=== PATIENT | female | born 1960 | race Caucasian/White ===

== ENCOUNTER 2016-06-10 14:02 | Emergency (ER) | payer BC, OTHER ==
--- NOTE | 2016-06-10 14:20 | ED NURSING NOTES ---
Clinical Report - Nurses [facility] [address] [place] [address] 06/10/2016 14:03 Patient: JUVENAL RECINOS TRIAGE Triage time 14:09 Jun 10 2016. Acuity: LEVEL 3. Chief Complaint: FACIAL DROOP. 14:17 06/10/16. Alert. No acute distress. SEPSIS SCREEN: Sepsis Screen. Negative (no infection suspected/documented). FABIANA COMA SCORE: [place] Coma Scale: 15- eyes open spontaneously (4); best verbal response- oriented x 4 (5); best motor response- obeys commands (6). --14:17 Flory Martin 14:17 06/10/16. BP: 105/85. HR: 84. RR: 16. O2 saturation: 98%. Temp: 97.7 F. Pain level now 0/10. --14:17 Flory Martin. Weight: 94.8 kg stated. Height/Length: 67 inches Per Patient. BMI: 32.8. --14:15 Flory Martin. Medications Levothyroxine Sodium Oral. --14:11 Flory Martin Tamoxifen Citrate Oral. --14:11 Flory Martin Cholesterol, unsure of name. --14:11 Flory Martin Coenzyme Q-10 Oral 10 mg. --14:12 Flory Martin Multivitamin Oral. --14:12 Flory Martin Probiotic Oral. --14:13 Flory Martin Benzonatate Oral. --14:13 Flory Martin. Medication/allergy information source: the patient. --14:17 Flory Martin. Allergies None. --14:13 Flory Martin. History Arrived by private vehicle. Historian: patient. Accompanied by spouse. Primary physician (Sarath). This started yesterday. ( Pt reports facial droop on the left side of her face that started last night and got a little worse this AM. Pt reports vertigo about a week ago, but no sickness since then.). She has had a recent fall (landed on her side). She has had new onset of numbness of the left face. No alteration in mental status, impaired speech, trouble walking or swallowing or dizziness. No weakness. 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 PAST MEDICAL HX: No history of stroke, diabetes mellitus or hypertension. No history of seizures. Immunizations: up-to-date and seasonal influenza. SOCIAL HX: Never smoker. No alcohol use or drug use. FALL RISK ASSESSMENT: Fall risk assessment completed. No fall risk identified. NUTRITIONAL RISK ASSESSMENT: The nutritional risk assessment revealed no deficiencies. FUNCTIONAL ASSESSMENT: Functional assessment: no impairments noted. LEARNING NEEDS ASSESSMENT: The learning needs assessment revealed no barriers. SKIN INTEGRITY ASSESSMENT: Skin integrity risk assessment completed. No skin integrity risk identified. --14:17 Flory Martin. PROBLEMS: Hypercholesterolemia. Thyroid Disease. --14:14 Flory Martin. Assessment The patient states feels the same. --14:17 Flory Martin. Interventions ID band on patient. --14:17 Flory Martin. PHYSICAL ASSESSMENT 14:18 06/10/16. Ambulatory to room. Baseline functional status: usually alert, oriented x4 and cooperative. Verbal response: usually clear and appropriate. Motor response: usually steady gait and moves all extremities equally GENERAL / NEURO / PSYCH: Awake. Oriented X 4. Alert. Appears in no acute distress. Speech normal. Mood/affect normal. Moves all extremities equally. No sensory deficit. HEENT: Left-sided facial weakness. Pupils equal, round and reactive to light. Pharynx within normal limits. RESPIRATORY: Respirations not labored. CVS: Capillary refill less than 2 seconds. SKIN: Skin is intact, warm and dry. --14:18 Flory Martin. NURSING PROGRESS NOTES 14:18 06/10/16. The plan of care for this patient has been created. Head of bed elevated. Reassurance given. Two patient identifiers checked. Call light placed in reach. Side rails up x 1. Bed placed in lowest position. Brakes of bed on. Patient ready for evaluation- chart flagged and ED physician and WORK DISTRIBUTOR notified. --14:18 Flory Martin. DISPOSITION / DISCHARGE 14:30 06/10/16. The goals identified in the patient's plan of care were met. --14:30 Flory Martin 14:28 06/10/16. BP: deferred. HR: deferred. RR: deferred. O2 saturation: deferred. Temp: deferred. Pain level now deferred. --14:30 Flory Martin Departure time: 14:30 Jun 10 2016. Condition at departure: unchanged. No learning barriers present. Discharge instructions provided and reviewed with the patient and spouse. Reviewed warnings (Patient verbalized awareness of warning s/sx listed in dc paperwork. Pt given form with stroke s/sx per request.). Reviewed medication(s) side effects, precautions, dosing and course information. Prescription(s) given to the patient (Prednisone.). Treatments reviewed. Reviewed referral to a primary care physician for followup. Patient verbalized understanding. Written instructions provided in Uzbek. The patient was discharged by the nurse practitioner. She was discharged home and accompanied by spouse. She left the Emergency Department ambulatory and via private vehicle. Spouse driving. --14:45 Flory Martin. Locked/Released at 06/10/2016 14:46 by Flory Martin,
--- NOTE | 2016-06-10 14:20 | ED NURSING NOTES ---
Clinical Report - Nurses [facility] [address] [place] [address] 06/10/2016 14:03 Patient: JUVENAL RECINOS TRIAGE Triage time 14:09 Jun 10 2016. Acuity: LEVEL 3. Chief Complaint: FACIAL DROOP. 14:17 06/10/16. Alert. No acute distress. SEPSIS SCREEN: Sepsis Screen. Negative (no infection suspected/documented). FABIANA COMA SCORE: [place] Coma Scale: 15- eyes open spontaneously (4); best verbal response- oriented x 4 (5); best motor response- obeys commands (6). --14:17 Flory Martin 14:17 06/10/16. BP: 105/85. HR: 84. RR: 16. O2 saturation: 98%. Temp: 97.7 F. Pain level now 0/10. --14:17 Flory Martin. Weight: 94.8 kg stated. Height/Length: 67 inches Per Patient. BMI: 32.8. --14:15 Flory Martin. Medications Levothyroxine Sodium Oral. --14:11 Flory Martin Tamoxifen Citrate Oral. --14:11 Flory Martin Cholesterol, unsure of name. --14:11 Flory Martin Coenzyme Q-10 Oral 10 mg. --14:12 Flory Martin Multivitamin Oral. --14:12 Flory Martin Probiotic Oral. --14:13 Flory Martin Benzonatate Oral. --14:13 Flory Martin. Medication/allergy information source: the patient. --14:17 Flory Martin. Allergies None. --14:13 Flory Martin. History Arrived by private vehicle. Historian: patient. Accompanied by spouse. Primary physician (Sarath). This started yesterday. ( Pt reports facial droop on the left side of her face that started last night and got a little worse this AM. Pt reports vertigo about a week ago, but no sickness since then.). She has had a recent fall (landed on her side). She has had new onset of numbness of the left face. No alteration in mental status, impaired speech, trouble walking or swallowing or dizziness. No weakness. 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 PAST MEDICAL HX: No history of stroke, diabetes mellitus or hypertension. No history of seizures. Immunizations: up-to-date and seasonal influenza. SOCIAL HX: Never smoker. No alcohol use or drug use. FALL RISK ASSESSMENT: Fall risk assessment completed. No fall risk identified. NUTRITIONAL RISK ASSESSMENT: The nutritional risk assessment revealed no deficiencies. FUNCTIONAL ASSESSMENT: Functional assessment: no impairments noted. LEARNING NEEDS ASSESSMENT: The learning needs assessment revealed no barriers. SKIN INTEGRITY ASSESSMENT: Skin integrity risk assessment completed. No skin integrity risk identified. --14:17 Flory Martin. PROBLEMS: Hypercholesterolemia. Thyroid Disease. --14:14 Flory Martin. Assessment The patient states feels the same. --14:17 Flory Martin. Interventions ID band on patient. --14:17 Flory Martin. PHYSICAL ASSESSMENT 14:18 06/10/16. Ambulatory to room. Baseline functional status: usually alert, oriented x4 and cooperative. Verbal response: usually clear and appropriate. Motor response: usually steady gait and moves all extremities equally GENERAL / NEURO / PSYCH: Awake. Oriented X 4. Alert. Appears in no acute distress. Speech normal. Mood/affect normal. Moves all extremities equally. No sensory deficit. HEENT: Left-sided facial weakness. Pupils equal, round and reactive to light. Pharynx within normal limits. RESPIRATORY: Respirations not labored. CVS: Capillary refill less than 2 seconds. SKIN: Skin is intact, warm and dry. --14:18 Flory Martin. NURSING PROGRESS NOTES 14:18 06/10/16. The plan of care for this patient has been created. Head of bed elevated. Reassurance given. Two patient identifiers checked. Call light placed in reach. Side rails up x 1. Bed placed in lowest position. Brakes of bed on. Patient ready for evaluation- chart flagged and ED physician and RAG COLLECTOR notified. --14:18 Flory Martin. DISPOSITION / DISCHARGE 14:30 06/10/16. The goals identified in the patient's plan of care were met. --14:30 Flory Martin 14:28 06/10/16. BP: deferred. HR: deferred. RR: deferred. O2 saturation: deferred. Temp: deferred. Pain level now deferred. --14:30 Flory Martin Departure time: 14:30 Jun 10 2016. Condition at departure: unchanged. No learning barriers present. Discharge instructions provided and reviewed with the patient and spouse. Reviewed warnings (Patient verbalized awareness of warning s/sx listed in dc paperwork. Pt given form with stroke s/sx per request.). Reviewed medication(s) side effects, precautions, dosing and course information. Prescription(s) given to the patient (Prednisone.). Treatments reviewed. Reviewed referral to a primary care physician for followup. Patient verbalized understanding. Written instructions provided in Irish. The patient was discharged by the nurse practitioner. She was discharged home and accompanied by spouse. She left the Emergency Department ambulatory and via private vehicle. Spouse driving. --14:45 Flory Martin. Locked/Released at 06/10/2016 14:46 by Flory Martin,
--- NOTE | 2016-06-10 14:20 | ED CLINICAL REPORT ---
Clinical Report - Physicians/Mid Levels [facility] [address] [place] [address] 06/10/2016 14:03 Patient: JUVENAL RECINOS Time Seen: 14:10; upon arrival, initial patient contact, initial documentation, patient care assumed. Arrived- By private vehicle. Historian- patient. HISTORY OF PRESENT ILLNESS Chief Complaint: PARESTHESIA. The patient has had numbness, and tingling. No weakness, impaired speech or swallowing, visual disturbance or recent fall. No difficulty walking. This started last night and is still present. At its maximum deficit described as mild. When seen in the E.D., deficit described as mild. No dizziness, altered mental status, seizure or blackouts. Usually is alert and oriented X3 and has normal mobility. (L side of face feels numb). Similar symptoms previously: None. Recent medical care: Not recently seen/assessed. REVIEW OF SYSTEMS No fever, headache, head injury, chest pain or difficulty breathing. All systems otherwise negative, except as recorded above. PAST HISTORY See nurses notes. ( PROBLEMS: Hypercholesterolemia. Thyroid Disease. --14:14 Flory Martin.). SOCIAL HISTORY Never smoker. No alcohol use or drug use. No recent travel. Is a local resident. FAMILY HISTORY Negative. ADDITIONAL NOTES The nursing notes have been reviewed with agreement regarding the chief complaint, HPI, ROS, PMH and patient medications and allergies. PHYSICAL EXAM Vital Signs: 06/10/2016 14:17 BP: 105/85. HR: 84. RR: 16. O2 saturation: 98%. Temp: 97.7 F. Have been reviewed as normal and appear to be correct. Appearance: Alert. No acute distress. Head: Head atraumatic. Eyes: Pupils equal, round and reactive to light. ENT: Normal ENT inspection. Airway intact. Pharynx normal. Neck: Normal inspection. Neck supple. CVS: Normal heart rate and rhythm. Heart sounds normal. Pulses normal. Respiratory: No respiratory distress. Breath sounds normal. Back: Normal inspection. Skin: Skin warm and dry. Normal skin color. No rash. Normal skin turgor. Extremities: Extremities exhibit normal ROM. No lower extremity edema. Neuro: Alert. Oriented X 3. Mood/affect normal. Speech normal. Cranial nerves abnormal. Mild left-sided facial weakness with sparing of forehead. No cerebellar findings. No motor deficit. No sensory deficit. PROGRESS AND PROCEDURES Patient counseled in person regarding the patient's stable condition and diagnosis. 14:19. Differential Diagnosis: Other possible considerations: bells palsy, tia, cva, trigeminal neuralgia, nerve impingement syndrome. Above considerations are based on history and physical exam. Differential diagnosis was discussed with patient. Disposition: Discharged home in good and unchanged condition (14:19). Condition: good and stable. 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 INSTRUCTIONS Warnings: GENERAL WARNINGS: Return or contact your physician immediately if your condition worsens or changes unexpectedly, if not improving as expected, or if other problems arise. Specifically return if problem worsens. Prescription Medications: Prednisone 20 mg: take 3 orally every day for 5 days. Dispense fifteen (15). No refills. Follow-up: Follow up with your doctor in about three days even if well. Call for an appointment. Summary of care provided to patient. Understanding of the discharge instructions verbalized by patient. (Electronically signed by Belinda Schultz A.R.N.P. 06/10/2016 14:34)
--- NOTE | 2016-06-10 14:47 | ED MED RECONCILIATION SUMMARY ---
Patient: JUVENAL RECINOS Medication Reconciliation Report [facility] VisitID: [id number] [address] [place] [address] 55y, F Registration Date/Time: 06/10/2016 Weight: 94.8 kg Height/Length: 67 in. BMI: 32.8 ALLERGIES: None The patient's Home Medications are listed below: THE FOLLOWING MEDICATIONS NEED TO BE RECONCILED: Benzonatate Oral Cholesterol, unsure of name Coenzyme Q-10 Oral 10 mg Levothyroxine Sodium Oral Multivitamin Oral Probiotic Oral Tamoxifen Citrate Oral The source(s) of the original Home Medication information: patient The following Medications were given to the patient in the Emergency Department: None. The following Medications were prescribed to the patient: Prednisone 20 mg: take 3 orally every day for 5 days. Dispense fifteen (15). No refills. -- Belinda Schultz A.R.N.P.
--- NOTE | 2016-06-10 14:47 | ED MAR SUMMARY ---
..... Medication Administration Record [facility] [address], [place] [id number] Patient: JUVENAL RECINOS Mei Visit ID: [id number] 55y, F Weight: 94.8 kg Height/Length: 67 in BMI: 32.8 ALLERGIES: None
--- NOTE | 2016-06-10 14:47 | ED DISCHARGE INSTRUCTIONS ---
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 INSTRUCTIONS Warnings: GENERAL WARNINGS: Return or contact your physician immediately if your condition worsens or changes unexpectedly, if not improving as expected, or if other problems arise. Specifically return if problem worsens. Prescription Medications: Prednisone 20 mg: take 3 orally every day for 5 days. Dispense fifteen (15). No refills. Follow-up: Follow up with your doctor in about three days even if well. Call for an appointment. Summary of care provided to patient. Understanding of the discharge instructions verbalized by patient. ADDITIONAL INFORMATION Zamora's Palsy Zamora's Palsy is a problem involving the nerve that controls the muscles on one side of the face. The cause is unknown, but may be related to inflammation of the nerve. Most persons with this problem recover completely within 3-6 months. Symptoms on the involved side of the face may include: inability to close the upper eyelid, excess tearing, facial drooping with uneven mouth shape, drooling, facial numbness or pain, changes in taste, sensitivity to sound. The most serious problem is possible injury to the eye. Since you cannot blink normally, you must protect your eye from flying dust particles, wind, etc. Also, since tears cannot lubricate the eye without blinking, there is danger that the cornea (clear part in front of the colored iris) will dry out and form an ulcer. This could permanently affect vision. Home Care: Use Artificial Tears frequently during the day and at bedtime to prevent drying. These drops are available without prescription at your drug store. Wear protective glasses especially when outside to protect from flying debris. Tape the eyelid closed at bedtime with a paper tape (available at your pharmacy). This has a very mild adhesive to avoid injury to the lid. This will protect your eye from injury while you sleep. Sometimes medicines are prescribed to reduce inflammation or treat specific viral infections of the nerve. If medicines are prescribed, take them exactly as directed. Follow Up with your doctor or with an Ear/Nose/Throat specialist within the next two weeks. Get Prompt Medical Attention if any of the following occur: Redness of the eye or pus draining from the eye Change in vision or pain in the eye Appearance of headache, neck pain, fever or other unexplained symptoms Difficulty with speech or walking Weakness in one arm or leg Prednisone Oral tablet What is this medicine? PREDNISONE (PRED ni sone) is a corticosteroid. It is commonly used to treat inflammation of the skin, joints, lungs, and other organs. Common conditions treated include asthma, allergies, and arthritis. It is also used for other conditions, such as blood disorders and diseases of the adrenal glands. How should I use this medicine? Take this medicine by mouth with a glass of water. Follow the directions on the prescription label. Take this medicine with food. If you are taking this medicine once a day, take it in the morning. Do not take more medicine than you are told to take. Do not suddenly stop taking your medicine because you may develop a severe reaction. Your doctor will tell you how much medicine to take. If your doctor wants you to stop the medicine, the dose may be slowly lowered over time to avoid any side effects. Talk to your linoleum installer regarding the use of this medicine in children. Special care may be needed. What side effects may I notice from receiving this medicine? Side effects that you should report to your doctor or health nurse healthcare manager as soon as possible: allergic reactions like skin rash, itching or hives, swelling of the face, lips, or tongue changes in emotions or moods changes in vision depressed mood eye pain fever or chills, cough, sore throat, pain or difficulty passing urine increased thirst swelling of ankles, feet Side effects that usually do not require medical attention (report to your doctor or health nurse healthcare manager if they continue or are bothersome): confusion, excitement, restlessness headache nausea, vomiting skin problems, acne, thin and shiny skin trouble sleeping weight gain What may interact with this medicine? Do not take this medicine with any of the following medications: metyrapone mifepristone This medicine may also interact with the following medications: aminoglutethimide amphotericin B aspirin and aspirin-like medicines barbiturates certain medicines for diabetes, like glipizide or glyburide cholestyramine cholinesterase inhibitors cyclosporine digoxin diuretics ephedrine female hormones, like estrogens and control pills isoniazid ketoconazole NSAIDS, medicines for pain and inflammation, like ibuprofen or naproxen phenytoin rifampin toxoids vaccines warfarin What if I miss a dose? If you miss a dose, take it as soon as you can. If it is almost time for your next dose, talk to your doctor or health nurse healthcare manager. You may need to miss a dose or take an extra dose. Do not take double or extra doses without advice. Where should I keep my medicine? Keep out of the reach of children. Store at room temperature between 15 and 30 degrees C (59 and 86 degrees F). Protect from light. Keep container tightly closed. Throw away any unused medicine after the expiration date. What should I tell my health care provider before I take this medicine? They need to know if you have any of these conditions: Jessica's syndrome diabetes glaucoma heart disease high blood pressure infection (especially a virus infection such as chickenpox, cold sores, or herpes) kidney disease liver disease mental illness myasthenia gravis osteoporosis seizures stomach or intestine problems thyroid disease an unusual or allergic reaction to lactose, prednisone, other medicines, foods, dyes, or preservatives or trying to get breast-feeding What should I watch for while using this medicine? Visit your doctor or health nurse healthcare manager for regular checks on your progress. If you are taking this medicine over a prolonged period, carry an identification card with your name and address, the type and dose of your medicine, and your doctor's name and address. This medicine may increase your risk of getting an infection. Tell your doctor or health nurse healthcare manager if you are around anyone with measles or chickenpox, or if you develop sores or blisters that do not heal properly. If you are going to have surgery, tell your doctor or health nurse healthcare manager that you have taken this medicine within the last twelve months. Ask your doctor or health nurse healthcare manager about your diet. You may need to lower the amount of salt you eat. This medicine may affect blood sugar levels. If you have diabetes, check with your doctor or health nurse healthcare manager before you change your diet or the dose of your diabetic medicine. You have been given the following additional information: Zamora's Palsy Prednisone Oral tablet (Electronically signed by Belinda Schultz A.R.N.P. 06/10/2016 14:34)
--- NOTE | 2016-06-10 14:47 | ED DISCHARGE INSTRUCTIONS ---
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 INSTRUCTIONS Warnings: GENERAL WARNINGS: Return or contact your physician immediately if your condition worsens or changes unexpectedly, if not improving as expected, or if other problems arise. Specifically return if problem worsens. Prescription Medications: Prednisone 20 mg: take 3 orally every day for 5 days. Dispense fifteen (15). No refills. Follow-up: Follow up with your doctor in about three days even if well. Call for an appointment. Summary of care provided to patient. Understanding of the discharge instructions verbalized by patient. ADDITIONAL INFORMATION Zamora's Palsy Zamora's Palsy is a problem involving the nerve that controls the muscles on one side of the face. The cause is unknown, but may be related to inflammation of the nerve. Most persons with this problem recover completely within 3-6 months. Symptoms on the involved side of the face may include: inability to close the upper eyelid, excess tearing, facial drooping with uneven mouth shape, drooling, facial numbness or pain, changes in taste, sensitivity to sound. The most serious problem is possible injury to the eye. Since you cannot blink normally, you must protect your eye from flying dust particles, wind, etc. Also, since tears cannot lubricate the eye without blinking, there is danger that the cornea (clear part in front of the colored iris) will dry out and form an ulcer. This could permanently affect vision. Home Care: Use Artificial Tears frequently during the day and at bedtime to prevent drying. These drops are available without prescription at your drug store. Wear protective glasses especially when outside to protect from flying debris. Tape the eyelid closed at bedtime with a paper tape (available at your pharmacy). This has a very mild adhesive to avoid injury to the lid. This will protect your eye from injury while you sleep. Sometimes medicines are prescribed to reduce inflammation or treat specific viral infections of the nerve. If medicines are prescribed, take them exactly as directed. Follow Up with your doctor or with an Ear/Nose/Throat specialist within the next two weeks. Get Prompt Medical Attention if any of the following occur: Redness of the eye or pus draining from the eye Change in vision or pain in the eye Appearance of headache, neck pain, fever or other unexplained symptoms Difficulty with speech or walking Weakness in one arm or leg Prednisone Oral tablet What is this medicine? PREDNISONE (PRED ni sone) is a corticosteroid. It is commonly used to treat inflammation of the skin, joints, lungs, and other organs. Common conditions treated include asthma, allergies, and arthritis. It is also used for other conditions, such as blood disorders and diseases of the adrenal glands. How should I use this medicine? Take this medicine by mouth with a glass of water. Follow the directions on the prescription label. Take this medicine with food. If you are taking this medicine once a day, take it in the morning. Do not take more medicine than you are told to take. Do not suddenly stop taking your medicine because you may develop a severe reaction. Your doctor will tell you how much medicine to take. If your doctor wants you to stop the medicine, the dose may be slowly lowered over time to avoid any side effects. Talk to your employment training specialist regarding the use of this medicine in children. Special care may be needed. What side effects may I notice from receiving this medicine? Side effects that you should report to your doctor or health floor care technician as soon as possible: allergic reactions like skin rash, itching or hives, swelling of the face, lips, or tongue changes in emotions or moods changes in vision depressed mood eye pain fever or chills, cough, sore throat, pain or difficulty passing urine increased thirst swelling of ankles, feet Side effects that usually do not require medical attention (report to your doctor or health floor care technician if they continue or are bothersome): confusion, excitement, restlessness headache nausea, vomiting skin problems, acne, thin and shiny skin trouble sleeping weight gain What may interact with this medicine? Do not take this medicine with any of the following medications: metyrapone mifepristone This medicine may also interact with the following medications: aminoglutethimide amphotericin B aspirin and aspirin-like medicines barbiturates certain medicines for diabetes, like glipizide or glyburide cholestyramine cholinesterase inhibitors cyclosporine digoxin diuretics ephedrine female hormones, like estrogens and control pills isoniazid ketoconazole NSAIDS, medicines for pain and inflammation, like ibuprofen or naproxen phenytoin rifampin toxoids vaccines warfarin What if I miss a dose? If you miss a dose, take it as soon as you can. If it is almost time for your next dose, talk to your doctor or health floor care technician. You may need to miss a dose or take an extra dose. Do not take double or extra doses without advice. Where should I keep my medicine? Keep out of the reach of children. Store at room temperature between 15 and 30 degrees C (59 and 86 degrees F). Protect from light. Keep container tightly closed. Throw away any unused medicine after the expiration date. What should I tell my health care provider before I take this medicine? They need to know if you have any of these conditions: Jessica's syndrome diabetes glaucoma heart disease high blood pressure infection (especially a virus infection such as chickenpox, cold sores, or herpes) kidney disease liver disease mental illness myasthenia gravis osteoporosis seizures stomach or intestine problems thyroid disease an unusual or allergic reaction to lactose, prednisone, other medicines, foods, dyes, or preservatives or trying to get breast-feeding What should I watch for while using this medicine? Visit your doctor or health floor care technician for regular checks on your progress. If you are taking this medicine over a prolonged period, carry an identification card with your name and address, the type and dose of your medicine, and your doctor's name and address. This medicine may increase your risk of getting an infection. Tell your doctor or health floor care technician if you are around anyone with measles or chickenpox, or if you develop sores or blisters that do not heal properly. If you are going to have surgery, tell your doctor or health floor care technician that you have taken this medicine within the last twelve months. Ask your doctor or health floor care technician about your diet. You may need to lower the amount of salt you eat. This medicine may affect blood sugar levels. If you have diabetes, check with your doctor or health floor care technician before you change your diet or the dose of your diabetic medicine. You have been given the following additional information: Zamora's Palsy Prednisone Oral tablet (Electronically signed by Belinda Schultz A.R.N.P. 06/10/2016 14:34)
--- NOTE | 2016-06-10 14:47 | ED MED RECONCILIATION SUMMARY ---
Patient: JUVENAL RECINOS Medication Reconciliation Report [facility] VisitID: [id number] [address] [place] [address] 55y, F Registration Date/Time: 06/10/2016 Weight: 94.8 kg Height/Length: 67 in. BMI: 32.8 ALLERGIES: None The patient's Home Medications are listed below: THE FOLLOWING MEDICATIONS NEED TO BE RECONCILED: Benzonatate Oral Cholesterol, unsure of name Coenzyme Q-10 Oral 10 mg Levothyroxine Sodium Oral Multivitamin Oral Probiotic Oral Tamoxifen Citrate Oral The source(s) of the original Home Medication information: patient The following Medications were given to the patient in the Emergency Department: None. The following Medications were prescribed to the patient: Prednisone 20 mg: take 3 orally every day for 5 days. Dispense fifteen (15). No refills. -- Belinda Schultz A.R.N.P.
--- NOTE | 2016-06-10 14:47 | ED MAR SUMMARY ---
..... Medication Administration Record [facility] [address], [place] [id number] Patient: JUVENAL RECINOS Mei Visit ID: [id number] 55y, F Weight: 94.8 kg Height/Length: 67 in BMI: 32.8 ALLERGIES: None
== END 2016-06-10 14:30 | disposition home or self-care (01) ==
LOC: ED SRH 14:02
DX: G51.0 Bell's palsy (principal); E07.9 Disorder of thyroid, unspecified; E78.00 Pure hypercholesterolemia, unspecified